=== PATIENT | male | born 1990 | race Caucasian/White ===

== ENCOUNTER 2016-03-16 08:19 | Outpatient (CLI) | payer BC ==
[2016-03-16 09:06] LABS: KETONES,URINE TRACE (NEGATIVE); LEUKOCYTE ESTERASE ,URINE NEGATIVE (NEGATIVE)
[2016-03-16 09:07] LABS: BASOPHILS % (AUTO) 0.2 % (0.0-2.0); DIFF TOTAL % 100 %; EOSINOPHILS # (AUTO) 0.1 /CMM (0.0-0.7); EOSINOPHILS % (AUTO) 1.6 % (0.0-6.0); HEMATOCRIT 45 % (39-51); HEMOGLOBIN 14.9 g/dL (13.5-17.5); LYMPHOCYTES # (AUTO) 2.8 /CMM (0.8-4.8); LYMPHOCYTES % (AUTO) 36.1 % (20.0-44.0); MEAN CORPUSCULAR HEMOGLOBIN 31 PG (26.0-33.0); MEAN CORPUSCULAR HGB CONC 33 g/dl (31.0-36.0); MEAN CORPUSCULAR VOLUME 91 fL (80-96); MONOCYTES # (AUTO) 0.6 /CMM (0.1-1.30); MONOCYTES % (AUTO) 7.5 % (2.0-12.0); NEUTROPHILS # (AUTO) 4.3 /CMM (1.8-8.9); NEUTROPHILS % (AUTO) 54.6 % (43.0-81.0); PLATELET COUNT (AUTO) 194 /CMM (150-450); RED BLOOD CELL COUNT(AUTO) 4.89 MIL/uL (4.5-6.0); WHITE BLOOD COUNT (AUTO) 7.8 K/uL (4.3-11.0)
[2016-03-16 09:17] LABS: ADD UA MICROSCOPIC YES
[2016-03-16 09:22] LABS: ADD URINE CULTURE NO; RBC,URINE 0-1 /HPF (0-2); WBC,URINE 0-2 /HPF (0-3)
[2016-03-16 09:23] LABS: MUCUS,URINE Few /LPF (None Seen)
[2016-03-16 09:41] LABS: ALBUMIN 4.4 g/dL (3.4-5.0); BILIRUBIN,TOTAL 0.7 mg/dL (0.2-1.0); CALCIUM, SERUM 9.3 mg/dL (8.5-10.1); POTASSIUM 4.2 mmol/L (3.5-5.1); TOTAL PROTEIN, SERUM 7.8 g/dL (6.4-8.2)
[2016-03-16 09:44] LABS: THYROID STIMULATING HORMONE 2.812 uIU/mL (0.358-3.74)
== END 2016-03-16 23:59 | disposition home or self-care (01) ==
LOC: LAB 08:19
DX: K21.9 Gastro-esophageal reflux disease without esophagitis (principal); R53.83 Other fatigue; R53.81 Other malaise
CPT/HCPCS: 36415; 80053-TC; 80061-TC; 81000-TC; 84439-TC; 84443-TC; 84481; 85025-TC

== ENCOUNTER 2016-09-25 22:52 | Emergency (ER) | payer OTHER, BC ==
[~2016-09-25] VITALS: Ht 180.3 cm; Wt 70.3 kg
[2016-09-25 22:53] VITALS: BP 144/86
== END 2016-09-25 23:58 | disposition home or self-care (01) ==
LOC: ER 22:56
DX: S61.230A Puncture wound without foreign body of right index finger without damage to nail, initial encounter (principal); W46.0XXA Contact with hypodermic needle, initial encounter; Y93.89 Activity, other specified; Y92.89 Other specified places as the place of occurrence of the external cause; Y99.9 Unspecified external cause status
CPT/HCPCS: 36415; 86706; 86803; 87340; 99284; A4606; Z7610